=== PATIENT | female | born 1975 | race Asian ===

== ENCOUNTER 2017-10-09 09:02 | Emergency (ER) | payer OTHER ==
[~2017-10-09] VITALS: Ht 154.9 cm; Wt 66.7 kg
[~2017-10-09 09:02] MED LIST: CALCIUM 600-D 61 TA1 PO; DIA5 PO; FER300 PO; IRON; VIT D2
[2017-10-09 09:37] LABS: BASOPHIL % 0.8 % (0-2)
[2017-10-09 09:38] LABS: PLATELET COUNT 405 x10^3mcL (130-400); RED CELL DISTRIBUTION WIDTH 15.5 % (11.5-14.5)
[2017-10-09 10:04] VITALS: BP 113/64
== END 2017-10-09 10:04 | disposition home or self-care (01) ==
LOC: ED 09:02
DX: N93.8 Other specified abnormal uterine and vaginal bleeding (principal); E11.9 Type 2 diabetes mellitus without complications; Z85.038 Personal history of other malignant neoplasm of large intestine; Z90.89 Acquired absence of other organs; Z98.51 Tubal ligation status